=== PATIENT | female | born 1985 | race Caucasian/White ===

== ENCOUNTER 2024-03-21 16:20 | Observation (INO) | payer OTHER ==
[2024-03-21 19:17] LABS: EPI CELLS 30 /uL (0-25.1); HYALINE CASTS 2 /uL (0-3.1); PH,URINE 7.5 (5.0-8.0); URINE APPEARANCE CLEAR; URINE BACTERIA 663 /uL (0-1359); URINE BILIRUBIN NEGATIVE (NEGATIVE); URINE COLOR YELLOW; URINE GLUCOSE (UA) NEGATIVE (NEGATIVE); URINE KETONE NEGATIVE (NEGATIVE); URINE LEUK ESTERASE 1+ (NEGATIVE); URINE NITRITE NEGATIVE (NEGATIVE); URINE PROTEIN TRACE (NEGATIVE); URINE RBC 5 /uL (0-23.9); URINE WBC 35 /uL (0-25.8)
[2024-03-21 20:20] LABS: BASO % 0.4 % (0-2.0); EOS % 1.9 % (0-4.5); HEMATOCRIT 36.2 % (32.4-45.2); HEMOGLOBIN 11.8 GM/dL (10.7-15.3); LYMPH % 20.3 % (8-40); MCH 29.8 pg (25.7-33.7); MCHC 32.7 g/dl (32.0-36.0); MEAN CELL VOLUME 91.1 fl (80-96); MEAN PLT VOLUME 9.4 fl (7.5-11.1); MONO % 5.4 % (3.8-10.2); PLATELET COUNT 251 10^3/uL (134-434); RBC 3.97 M/mm3 (3.60-5.2); RDW 13.4 % (11.6-15.6); WHITE BLOOD COUNT 12.7 K/mm3 (4.0-10.0)
[2024-03-21 20:28] LABS: INR 0.99 (0.83-1.09); PROTHROMBIN TIME (PATIENT) 11.2 SEC (9.7-13.0)
[2024-03-21 20:31] LABS: ACTIVATED PTT 30.5 SECONDS (25.2-36.5)
[2024-03-21] MEDS: LACTATED RINGERS SOLUTION 1,000 ML IV SCH (20:45)
[2024-03-21] MEDS: BETAMET ACET/BETAMET NA PH 30 MG/5 ML VIAL IM ONE (20:45)
[2024-03-21 20:47] LABS: POTASSIUM 4.1 mmol/L (3.5-5.1)
[2024-03-21 20:49] LABS: ALBUMIN 2.9 g/dl (3.4-5.0); BLOOD UREA NITROGEN 5.6 mg/dL (7-18); CALCIUM 8.9 mg/dL (8.5-10.1)
[2024-03-21] MEDS ORDERED: BETAMET ACET/BETAMET NA PH 30 MG/5 ML VIAL ONE (20:51)
[2024-03-21 20:53] LABS: CREATININE 0.5 mg/dL (0.55-1.3)
[2024-03-21 20:54] LABS: BILIRUBIN,TOTAL 0.5 mg/dL (0.2-1); TOT PROT 6.9 g/dl (6.4-8.2)
[2024-03-21 21:31] LABS: SYPHILIS W/ RPR CONF REACTIVE (NONREACTIVE)
[2024-03-21 21:55] LABS: HIV INTERPRETATION NEGATIVE (NEGATIVE)
[2024-03-21 22:11] VITALS: BMI 27.4
[2024-03-22 00:19] VITALS: RESP 18
[2024-03-22 01:19] LABS: METHADONE, UR NEGATIVE (NEGATIVE); OPIATES, URI NEGATIVE (NEGATIVE); URINE BARBITURATES NEGATIVE (NEGATIVE); URINE BENZODIAZEPINES NEGATIVE (NEGATIVE)
[2024-03-22 01:20] LABS: PHENCYCLIDINE,URINE NEGATIVE (NEGATIVE)
[2024-03-22 01:26] LABS: COCAINE, UR NEGATIVE (NEGATIVE); URINE AMPHETAMINES NEGATIVE (NEGATIVE)
[2024-03-22] MEDS: CITRIC ACID/SODIUM CITRATE 30 ML UNIT-DOSE CUP PO ONE (04:15)
[2024-03-22 06:22] VITALS: BP 102/68; PULSE 75; TEMP 98.4
[2024-03-22] MEDS: BETAMET ACET/BETAMET NA PH 30 MG/5 ML VIAL IM SCH (08:05)
[2024-03-22 09:26] LABS: EPI CELLS >36 /uL (0-25.1); HYALINE CASTS 3 /uL (0-3.1); URINE APPEARANCE CLEAR; URINE BACTERIA 3039 /uL (0-1359); URINE BILIRUBIN NEGATIVE (NEGATIVE); URINE COLOR YELLOW; URINE GLUCOSE (UA) NEGATIVE (NEGATIVE); URINE KETONE 4+ (NEGATIVE); URINE LEUK ESTERASE 3+ (NEGATIVE); URINE NITRITE NEGATIVE (NEGATIVE); URINE PROTEIN NEGATIVE (NEGATIVE); URINE RBC 12 /uL (0-23.9); URINE UROBILINOGEN 0.2 mg/dL (0.2-1.0); URINE WBC 336 /uL (0-25.8)
[2024-03-22] MEDS ORDERED: DEXTROSE 5%-WATER - 50 ML IVPB ONE (10:44)
[2024-03-22] MEDS ORDERED: ceFAZolin SODIUM 1 GM VIAL ONE (10:44)
[2024-03-22] MEDS: CEFAZOLIN 1 GM in DEXTROSE 5%-WATER - 50 ML IVPB SCH (10:49)
[2024-03-22] MEDS: LACTATED RINGERS SOLUTION 500 ML IV ONE (11:44)
[2024-03-22] MEDS: FAMOTIDINE 40 MG TABLET PO ONE (12:00)
[2024-03-22] MEDS: PENICILLIN G BENZATHINE 2,400,000 UNIT/4 ML PFS IM ONE (12:30)
[2024-03-22] MEDS ORDERED: NITROFURANTOIN MACROCRYSTAL 50 MG CAPSULE (FP) PO SCH (13:00)
== END 2024-03-22 12:56 | disposition home or self-care (01) ==
LOC: JDEL 16:20 → JLDR 19:30 → UNDOADMOB 19:30 → INTOOBSV 19:30 → JLDR 03-22 12:15
PROVIDERS: ADMIT Obstetrics & Gynecology Obstetrics; ATTEND Obstetrics & Gynecology Obstetrics
PROC: 3E023GC Introduction of Other Therapeutic Substance into Muscle, Percutaneous Approach (ICD-10-PCS; principal; 2024-03-22)
PROC: 3E03329 Introduction of Other Anti-infective into Peripheral Vein, Percutaneous Approach (ICD-10-PCS; 2024-03-22)
PROC: 3E0337Z Introduction of Electrolytic and Water Balance Substance into Peripheral Vein, Percutaneous Approach (ICD-10-PCS; 2024-03-22)
PROC: 3E02329 Introduction of Other Anti-infective into Muscle, Percutaneous Approach (ICD-10-PCS; 2024-03-22)
DX: O98.113 Syphilis complicating pregnancy, third trimester (principal); A53.9 Syphilis, unspecified; O09.33 Supervision of pregnancy with insufficient antenatal care, third trimester; O09.523 Supervision of elderly multigravida, third trimester; Z3A.34 34 weeks gestation of pregnancy
CPT/HCPCS: 36415; 76801-TC; 76830-TC; 80053; 80307; 81003; 85025; 85610; 85730; 86593; 86780; 86803; 86850; 86900; 86901; 87086; 87340; 87389; 96361; 96365; 96372; G0378